=== PATIENT | male | born 1975 | race Caucasian/White ===

== ENCOUNTER 2018-12-12 00:35 | Emergency (ER) | payer OTHER ==
[~2018-12-12] VITALS: Ht 182.9 cm; Wt 88.5 kg
[~2018-12-12 00:35] MED LIST: COREG CR10 MG PO; KEFLEX500 M1 PO; LIPITOR10 MG PO; LISINOPRIL10 MG PO; ULTRAM 50MG TAB50 MG PO
[2018-12-12] MEDS ORDERED: ASPIRIN325 PO (00:44)
[2018-12-12 00:55] LABS: ABSOLUTE BASOPHILS 0.1 thou/uL (0.0-0.2); ABSOLUTE EOSINOPHILS 0.3 thou/uL (0.0-0.7); ABSOLUTE LYMPHOCYTES 2.9 thou/uL (0.8-5.3); ABSOLUTE MONOCYTES 0.9 thou/uL (0.0-1.2); ABSOLUTE NEUTROPHILS 8.2 thou/uL (1.6-8.1); BASOPHILS 1.2 %; EOSINOPHILS 2.3 %; HEMATOCRIT 50.2 % (42.0-52.0); HEMOGLOBIN 17.1 gm/dL (14.0-18.0); LYMPHOCYTES 23.1 %; MCH 32.1 pg (26.0-34.0); MCV 94.3 fL (80.0-100.0); MONOCYTES 7.3 %; MPV 7.6 fl. (7.2-11.1); NUCLEATED RBCS 0 /100WBC; PLATELET COUNT* 332 thou/uL (150-400); POLYS 66.1 %; RBC 5.32 mil/uL (4.50-6.00); RDW-CV 13.7 % (10.5-14.5); WBC 12.4 thou/uL (4.0-11.0)
[2018-12-12 01:03] LABS: ANION GAP 11 mmol/L (7-16); BUN 7 mg/dL (7-18); CALCIUM 8.6 mg/dL (8.5-10.1); CHLORIDE 105 mmol/L (98-107); CO2 24 mmol/L (21-32); CREATININE 1.1 mg/dL (0.6-1.3); GLUCOSE 94 mg/dL (70-99); POTASSIUM 3.6 mmol/L (3.5-5.1); SODIUM 140 mmol/L (136-145)
[2018-12-12 01:06] LABS: INR 0.9; PROTIME 9.4 Seconds (9.20-11.50)
[2018-12-12 01:14] LABS: ALBUMIN 3.7 g/dL (3.4-5.0); ALKALINE PHOSPHATASE 68 U/L (46-116); LIPASE 600 U/L (73-393); NT-PRO BRAIN NAT PEPTIDE 176 pg/mL (<300); SGOT 19 U/L (15-37); SGPT 37 U/L (30-65); TOTAL BILIRUBIN 0.3 mg/dL (<0.1-1.0); TOTAL PROTEIN 6.6 g/dL (6.4-8.2); TROPONIN-I LEVEL <0.06 ng/mL (<0.06)
[2018-12-12 02:47] VITALS: BP 120/84
[2018-12-12] MEDS ORDERED: NORCO 7.5-3251 EACH PO (02:47)
--- NOTE | 2018-12-14 11:53 | EKG ---
[place] [address] ELECTROCARDIOGRAM REPORT Name: AMBER MALONE [id number] Admission: 12/12/18 Attend Phys: Discharge: 12/12/18 Date of : 75 Report #: [id number] THIS REPORT FOR: //name// [facility] ED Test Date: 2018-12-12 Test Time: 00:40:14 Pat Name: AMBER MALONE Department: Room: Gender: M Parts Room Associate: CARMEN : 1975 Requested By: Nicolle Muir Order Number: [id number] MD: Wilver Pastor Measurements Intervals [place] Rate: 78 P: 69 [place]: 137 QRS: 61 QRSD: 118 T: 41 QT: 405 QTc: 462 Interpretive Statements Sinus rhythm Incomplete right bundle branch block Abnormal lateral Q waves Anterior infarct, old No previous ECG available for comparison Electronically Signed On 12-14-2018 11:53:16 CDT by Wilver Pastor [email or web address] <ELECTRONICALLY SIGNED> By: Wilver Pastor MD, [facility] 12/14/18 1153 0040 0040 Wilver Pastor MD, FACC /EPI
== END 2018-12-12 02:48 | disposition home or self-care (01) ==
LOC: M.ERS 00:35
PROVIDERS: Emergency Medicine
DX: R10.13 Epigastric pain (principal); F17.200 Nicotine dependence, unspecified, uncomplicated; Z88.0 Allergy status to penicillin

== ENCOUNTER 2019-01-22 22:04 | Emergency (ER) | payer OTHER ==
[~2019-01-22] VITALS: Ht 182.9 cm; Wt 86.2 kg
[~2019-01-22 22:04] MED LIST changes: +ASPIRIN325 PO; +NORCO 7.5-3251 EACH PO
[2019-01-22] MEDS ORDERED: CARVEDILOL25 MG PO (22:12)
[2019-01-22] MEDS ORDERED: PRINIVIL5 MG PO (22:13)
[2019-01-22] MEDS ORDERED: LIPITOR 20 MG T20 M1 PO (22:13)
[2019-01-22] MEDS ORDERED: NITROSTAT0.3 MG SUBLING (22:14)
[2019-01-22 22:40] LABS: ABSOLUTE BASOPHILS 0.1 thou/uL (0.0-0.2); ABSOLUTE EOSINOPHILS 0.2 thou/uL (0.0-0.7); ABSOLUTE LYMPHOCYTES 2.1 thou/uL (0.8-5.3); ABSOLUTE MONOCYTES 0.6 thou/uL (0.0-1.2); ABSOLUTE NEUTROPHILS 6.7 thou/uL (1.6-8.1); BASOPHILS 0.8 %; EOSINOPHILS 2.5 %; HEMATOCRIT 49.8 % (42.0-52.0); HEMOGLOBIN 17.3 gm/dL (14.0-18.0); LYMPHOCYTES 21.8 %; MCH 32.5 pg (26.0-34.0); MCHC 34.8 g/dL (28.0-37.0); MCV 93.3 fL (80.0-100.0); MONOCYTES 6.6 %; MPV 7.1 fl. (7.2-11.1); NUCLEATED RBCS 0 /100WBC; PLATELET COUNT* 335 thou/uL (150-400); POLYS 68.3 %; RBC 5.34 mil/uL (4.50-6.00); RDW-CV 13.5 % (10.5-14.5); WBC 9.8 thou/uL (4.0-11.0)
[2019-01-22 22:48] LABS: CALCIUM 9.3 mg/dL (8.5-10.1); CREATININE 1.2 mg/dL (0.6-1.3); POTASSIUM 3.7 mmol/L (3.5-5.1)
[2019-01-22 22:53] LABS: ALBUMIN 3.9 g/dL (3.4-5.0); TOTAL BILIRUBIN 0.2 mg/dL (<0.1-1.0); TOTAL PROTEIN 7.1 g/dL (6.4-8.2)
[2019-01-22] MEDS ORDERED: PHENERGAN 25 MG25 M1 PO (23:23)
[2019-01-22] MEDS ORDERED: NORCO 5-325 TA1 EAC1 PO (23:23)
[2019-01-22 23:54] VITALS: BP 125/80
--- NOTE | 2019-01-23 14:31 | EKG ---
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 Inspector: CARMEN : 1975 Requested By: Nicolle Muir Order Number: [id number] MD: Tom Anaya Measurements Intervals [place] Rate: 82 P: 78 [place]: 150 QRS: 5 QRSD: 88 T: 57 QT: 358 QTc: 418 Interpretive Statements Sinus rhythm Anterior infarct, old Baseline wander in lead(s) III Compared to ECG 12/12/2018 00:40:14 Incomplete right bundle-branch block no longer present Q waves no longer present Myocardial infarct finding still present Electronically Signed On 01-23-2019 14:30:49 CDT by Tom Anaya [email or web address] <ELECTRONICALLY SIGNED> By: Tom Anaya MD, FACC 01/23/19 1430 08 08 Tom Anaya MD, FACC /EPI
== END 2019-01-22 23:55 | disposition home or self-care (01) ==
LOC: M.ERS 22:04
PROVIDERS: Emergency Medicine
DX: K85.90 Acute pancreatitis without necrosis or infection, unspecified (principal); R19.7 Diarrhea, unspecified; F17.210 Nicotine dependence, cigarettes, uncomplicated; Z88.0 Allergy status to penicillin

== ENCOUNTER 2019-04-05 22:32 | Emergency (ER) | payer OTHER ==
[~2019-04-05] VITALS: Ht 182.9 cm; Wt 86.2 kg
[~2019-04-05 22:32] MED LIST changes: +CARVEDILOL25 MG PO; +LIPITOR 20 MG T20 M1 PO; +NITROSTAT0.3 MG SUBLING; +NORCO 5-325 TA1 EAC1 PO; +PHENERGAN 25 MG25 M1 PO; +PRINIVIL5 MG PO
[2019-04-05 23:19] LABS: ABSOLUTE BASOPHILS 0.1 thou/uL (0.0-0.2); ABSOLUTE EOSINOPHILS 0.3 thou/uL (0.0-0.7); ABSOLUTE LYMPHOCYTES 2.3 thou/uL (0.8-5.3); ABSOLUTE MONOCYTES 0.8 thou/uL (0.0-1.2); ABSOLUTE NEUTROPHILS 6.8 thou/uL (1.6-8.1); BASOPHILS 0.9 %; HEMATOCRIT 45.7 % (42.0-52.0); LYMPHOCYTES 22.2 %; MCH 32.2 pg (26.0-34.0); MONOCYTES 8.1 %; MPV 7.7 fl. (7.2-11.1); NUCLEATED RBCS 0 /100WBC; PLATELET COUNT* 294 thou/uL (150-400); POLYS 65.8 %; RBC 4.97 mil/uL (4.50-6.00); RDW-CV 13.6 % (10.5-14.5); WBC 10.3 thou/uL (4.0-11.0)
[2019-04-05 23:23] LABS: POTASSIUM 3.7 mmol/L (3.5-5.1)
[2019-04-05 23:35] LABS: ALBUMIN 3.5 g/dL (3.4-5.0); TOTAL BILIRUBIN 0.2 mg/dL (<0.1-1.0); TOTAL PROTEIN 6.3 g/dL (6.4-8.2)
[2019-04-06 00:01] VITALS: BP 111/78
--- NOTE | 2019-04-06 14:19 | EKG ---
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: [place] : 1975 Requested By: Shamar Luke Order Number: [id number] MD: Fran Solano Measurements Intervals [place] Rate: 72 P: 47 [place]: 132 QRS: 46 QRSD: 92 T: 77 QT: 383 QTc: 420 Interpretive Statements Sinus rhythm Anterolateral infarct, age indeterminate Compared to ECG 01/22/2019 22:09:24 No significant changes Electronically Signed On 04-06-2019 14:18:29 RECORD CENTER SPECIALIST by Fran Solano [email or web address] <ELECTRONICALLY SIGNED> By: Fran Solano MD, [facility] 04/06/19 1418 2306 2306 Fran Solano MD, FACC /EPI
== END 2019-04-06 00:03 | disposition home or self-care (01) ==
LOC: M.ERS 22:32
PROVIDERS: Family Medicine
DX: R10.13 Epigastric pain (principal); I25.2 Old myocardial infarction; F17.200 Nicotine dependence, unspecified, uncomplicated; Z95.2 Presence of prosthetic heart valve; Z88.0 Allergy status to penicillin

== ENCOUNTER 2019-04-13 22:00 | Emergency (ER) | payer OTHER ==
[~2019-04-13] VITALS: Ht 182.9 cm; Wt 89.4 kg
[2019-04-13 22:43] LABS: URINE BILIRUBIN NEGATIVE (Negative); URINE BLOOD NEGATIVE (Negative); URINE CLARITY CLEAR; URINE COLOR YELLOW; URINE GLUCOSE-RANDOM NEGATIVE (Negative); URINE KETONES NEGATIVE (Negative); URINE LEUKOCYTES-REFLEX NEGATIVE (Negative); URINE NITRITE-REFLEX NEGATIVE (Negative); URINE PROTEIN NEGATIVE (Negative); URINE SPECIFIC GRAVITY >= 1.030 (1.005-1.030); URINE UROBILINOGEN 0.2 E.U./dl (0.2-1.0)
[2019-04-13 22:43] LABS: ABSOLUTE BASOPHILS 0.1 thou/uL (0.0-0.2); ABSOLUTE EOSINOPHILS 0.3 thou/uL (0.0-0.7); ABSOLUTE LYMPHOCYTES 2.2 thou/uL (0.8-5.3); ABSOLUTE MONOCYTES 0.7 thou/uL (0.0-1.2); BASOPHILS 1.2 %; EOSINOPHILS 2.7 %; HEMATOCRIT 46.1 % (42.0-52.0); HEMOGLOBIN 16.1 gm/dL (14.0-18.0); LYMPHOCYTES 21.3 %; MCH 32.6 pg (26.0-34.0); MCHC 34.9 g/dL (28.0-37.0); MCV 93.1 fL (80.0-100.0); MONOCYTES 7.1 %; MPV 7.6 fl. (7.2-11.1); NUCLEATED RBCS 0 /100WBC; PLATELET COUNT* 327 thou/uL (150-400); POLYS 67.7 %; RBC 4.95 mil/uL (4.50-6.00); RDW-CV 13.6 % (10.5-14.5); WBC 10.4 thou/uL (4.0-11.0)
[2019-04-13 22:53] LABS: AMP/METHAMP Negative (Negative); BARBITURATES Negative (Negative); BENZODIAZEPINES Negative (Negative); COCAINE Negative (Negative); METHADONE Negative (Negative); OPIATES Negative (Negative); PCP Negative (Negative); THC POSITIVE (Negative)
[2019-04-13 22:54] LABS: ALBUMIN 3.6 g/dL (3.4-5.0)
[2019-04-13 23:01] LABS: POTASSIUM 3.8 mmol/L (3.5-5.1)
[2019-04-13 23:05] LABS: TOTAL BILIRUBIN 0.3 mg/dL (<0.1-1.0); TOTAL PROTEIN 6.6 g/dL (6.4-8.2)
[2019-04-14] MEDS ORDERED: HYDROCODON-ACE1 EAC8 PO (00:24)
[2019-04-14] MEDS ORDERED: PHENERGAN 25 MG25 M1 PO (00:24)
[2019-04-14 00:40] VITALS: BP 144/83
--- NOTE | 2019-04-14 10:19 | EKG ---
[place] [address] ELECTROCARDIOGRAM REPORT Name: AMBER MALONE [id number] Admission: 04/13/19 Attend Phys: Discharge: 04/14/19 Date of : 75 Report #: [id number] THIS REPORT FOR: //name// [facility] ED Test Date: 2019-04-13 Test Time: 22:29:55 Pat Name: AMBER MALONE Department: Room: Gender: M Party Chief: ALEXANDRU : 1975 Requested By: Nicolle Muir Order Number: [id number] Lizeth MD: Fran Solano Measurements Intervals [place] Rate: 72 P: 73 [place]: 145 QRS: 93 QRSD: 103 T: 59 QT: 382 QTc: 419 Interpretive Statements Sinus rhythm Extensive anterior infarct, old Compared to ECG 04/05/2019 23:06:40 No significant changes Electronically Signed On 04-14-2019 10:18:55 ELECTRIC METER TESTER by Fran Solano [email or web address] <ELECTRONICALLY SIGNED> By: Fran Solano MD, [facility] 04/14/19 1018 2229 2229 Fran Solano MD, FACC /EPI
== END 2019-04-14 00:40 | disposition home or self-care (01) ==
LOC: M.ERS 22:00
PROVIDERS: Emergency Medicine
DX: K52.9 Noninfective gastroenteritis and colitis, unspecified (principal); I25.2 Old myocardial infarction; F17.210 Nicotine dependence, cigarettes, uncomplicated; Z95.2 Presence of prosthetic heart valve; Z88.0 Allergy status to penicillin

== ENCOUNTER 2020-05-17 21:59 | Emergency (ER) | payer OTHER ==
[~2020-05-17] VITALS: Ht 182.9 cm; Wt 86.2 kg
[~2020-05-17 21:59] MED LIST changes: +HYDROCODON-ACE1 EAC8 PO
[2020-05-17 22:41] LABS: ABSOLUTE BASOPHILS 0.1 thou/uL (0.0-0.2); ABSOLUTE EOSINOPHILS 0.2 thou/uL (0.0-0.7); ABSOLUTE LYMPHOCYTES 1.8 thou/uL (0.8-5.3); ABSOLUTE MONOCYTES 0.8 thou/uL (0.0-1.2); ABSOLUTE NEUTROPHILS 7.9 thou/uL (1.6-8.1); EOSINOPHILS 1.9 %; HEMATOCRIT 46.9 % (42.0-52.0); HEMOGLOBIN 15.8 gm/dL (14.0-18.0); LYMPHOCYTES 16.9 %; MCH 31.7 pg (26.0-34.0); MCHC 33.7 g/dL (28.0-37.0); MPV 6.9 fl. (7.2-11.1); NUCLEATED RBCS 0 /100WBC; PLATELET COUNT* 353 thou/uL (150-400); POLYS 73.2 %; RBC 4.99 mil/uL (4.50-6.00); RDW-CV 13.8 % (10.5-14.5); WBC 10.8 thou/uL (4.0-11.0)
[2020-05-17 22:50] LABS: CALCIUM 8.5 mg/dL (8.5-10.1); CREATININE 0.9 mg/dL (0.6-1.3); POTASSIUM 3.9 mmol/L (3.5-5.1)
[2020-05-17 22:52] LABS: APTT 27.1 Seconds (25.0-31.3); PROTIME 10.6 Seconds (9.20-11.50)
[2020-05-17 23:00] LABS: ALBUMIN 3.2 g/dL (3.4-5.0); TOTAL BILIRUBIN 0.3 mg/dL (<0.1-1.0); TOTAL PROTEIN 5.7 g/dL (6.4-8.2)
[2020-05-18 01:49] VITALS: BP 125/77
--- NOTE | 2020-05-18 11:32 | EKG ---
[place] [address] ELECTROCARDIOGRAM REPORT Name: AMBER MALONE Room: [facility]#: [id number] Admission: 05/17/20 Attend Phys: Discharge: 05/18/20 Date of : 75 Date of Service: 05/17/202201 Report #: [id number] THIS REPORT FOR: //name// [facility] ED Test Date: 2020-05-17 Test Time: 22:02:35 Pat Name: AMBER MALONE Department: Room: Gender: Net Lead Architect: YARELIS : 1975 Requested By: Fallon Penaloza Order Number: [id number] MD: Wilver Pastor Measurements Intervals [place] Rate: 71 P: 70 [place]: 132 QRS: -6 QRSD: 96 T: 58 QT: 378 QTc: 411 Interpretive Statements Sinus rhythm Anterior infarct, old Compared to ECG 04/13/2019 22:29:55 No significant changes Electronically Signed On 05-18-2020 11:32:32 AIR DEFENSE SPECIALIST by Wilver Pastor [email or web address] <ELECTRONICALLY SIGNED> By: Wilver Pastor MD, [facility] 05/18/20 1132 01 01 Wilver Pastor MD, [facility] /EPI
== END 2020-05-18 01:51 | disposition home or self-care (01) ==
LOC: M.ERS 21:59
PROVIDERS: Personal Emergency Response Attendant
DX: I25.10 Atherosclerotic heart disease of native coronary artery without angina pectoris (principal); Z88.0 Allergy status to penicillin; Z88.8 Allergy status to other drugs, medicaments and biological substances; Z95.5 Presence of coronary angioplasty implant and graft

== ENCOUNTER 2021-01-07 20:46 | Emergency (ER) | payer OTHER ==
[~2021-01-07] VITALS: Ht 182.9 cm; Wt 83.0 kg
[2021-01-07 21:36] LABS: ABSOLUTE BASOPHILS 0.1 thou/uL (0.0-0.2); ABSOLUTE EOSINOPHILS 0.1 thou/uL (0.0-0.7); ABSOLUTE MONOCYTES 1.1 thou/uL (0.0-1.2); ABSOLUTE NEUTROPHILS 8.1 thou/uL (1.6-8.1); BASOPHILS 0.9 %; EOSINOPHILS 1.3 %; HEMOGLOBIN 14.5 gm/dL (14.0-18.0); LYMPHOCYTES 17.4 %; MCH 32.6 pg (26.0-34.0); MCHC 34.5 g/dL (28.0-37.0); MCV 94.3 fL (80.0-100.0); MONOCYTES 9.3 %; NUCLEATED RBCS 0 /100WBC; PLATELET COUNT* 353 thou/uL (150-400); POLYS 71.1 %; RBC 4.45 mil/uL (4.50-6.00); RDW-CV 13.4 % (10.5-14.5); WBC 11.4 thou/uL (4.0-11.0)
[2021-01-07 21:39] LABS: CREATININE 1.3 mg/dL (0.6-1.3); POTASSIUM 3.7 mmol/L (3.5-5.1)
[2021-01-07 21:41] LABS: APTT 28.3 Seconds (25.0-31.3); PROTIME 11.1 Seconds (9.20-11.50)
[2021-01-07 21:43] LABS: ALBUMIN 4.7 g/dL (3.4-5.0); TOTAL BILIRUBIN 0.4 mg/dL (<0.1-1.0); TOTAL PROTEIN 7.7 g/dL (6.4-8.2)
[2021-01-08] MEDS ORDERED: AZITHROMYCIN 2250 MG PO (00:57)
[2021-01-08] MEDS ORDERED: ZOFRAN ODT4 MG PO (00:57)
[2021-01-08] MEDS ORDERED: HYDROCODON-ACE1 EAC7 PO (00:57)
[2021-01-08 01:18] VITALS: BP 111/71
--- NOTE | 2021-01-08 10:32 | EKG ---
[place] [address] ELECTROCARDIOGRAM REPORT Name: AMBER MALONE Room: [facility]#: [id number] Admission: 01/07/21 Attend Phys: Discharge: 01/08/21 Date of : 75 Date of Service: 01/07/212044 Report #: [id number] THIS REPORT FOR: //name// [facility] ED Test Date: 2021-01-07 Test Time: 20:45:35 Pat Name: AMBER MALONE Department: Room: Gender: Director Of Occupational Health: : 1975 Requested By: Fallon Penaloza Order Number: [id number] MD: Wilver Pastor Measurements Intervals [place] Rate: 73 P: 81 [place]: 148 QRS: 0 QRSD: 90 T: 84 QT: 367 QTc: 405 Interpretive Statements Sinus rhythm Anterior infarct, old Compared to ECG 05/17/2020 22:02:35 No significant changes Electronically Signed On 01-08-2021 10:31:53 CDT by Wilver Pastor [email or web address] <ELECTRONICALLY SIGNED> By: Wilver Pastor MD, FACC 01/08/21 1031 44 Wilver Pastor MD, [facility] /EPI
== END 2021-01-08 01:19 | disposition home or self-care (01) ==
LOC: M.ERS 20:46
PROVIDERS: Personal Emergency Response Attendant
DX: K85.90 Acute pancreatitis without necrosis or infection, unspecified (principal); Z20.822 Contact with and (suspected) exposure to COVID-19; J18.9 Pneumonia, unspecified organism; F17.210 Nicotine dependence, cigarettes, uncomplicated; Z88.0 Allergy status to penicillin; Z88.8 Allergy status to other drugs, medicaments and biological substances

== ENCOUNTER 2021-01-29 22:33 | Emergency (ER) | payer OTHER ==
[~2021-01-29] VITALS: Ht 182.9 cm; Wt 86.2 kg
[~2021-01-29 22:33] MED LIST changes: +AZITHROMYCIN 2250 MG PO; +HYDROCODON-ACE1 EAC7 PO; +ZOFRAN ODT4 MG PO
[2021-01-30 00:52] LABS: ABSOLUTE BASOPHILS 0.1 thou/uL (0.0-0.2); ABSOLUTE EOSINOPHILS 0.3 thou/uL (0.0-0.7); ABSOLUTE LYMPHOCYTES 2.8 thou/uL (0.8-5.3); ABSOLUTE NEUTROPHILS 7.5 thou/uL (1.6-8.1); EOSINOPHILS 2.7 %; HEMATOCRIT 41.3 % (42.0-52.0); HEMOGLOBIN 14.4 gm/dL (14.0-18.0); LYMPHOCYTES 23.5 %; MCH 32.5 pg (26.0-34.0); MCHC 34.8 g/dL (28.0-37.0); MCV 93.4 fL (80.0-100.0); MONOCYTES 8.8 %; MPV 6.9 fl. (7.2-11.1); NUCLEATED RBCS 0 /100WBC; PLATELET COUNT* 359 thou/uL (150-400); RBC 4.42 mil/uL (4.50-6.00); RDW-CV 13.3 % (10.5-14.5); WBC 11.8 thou/uL (4.0-11.0)
[2021-01-30 00:58] LABS: CALCIUM 8.5 mg/dL (8.5-10.1); CREATININE 0.9 mg/dL (0.6-1.3)
[2021-01-30 01:03] LABS: ALBUMIN 3.9 g/dL (3.4-5.0); TOTAL BILIRUBIN 0.2 mg/dL (<0.1-1.0); TOTAL PROTEIN 6.9 g/dL (6.4-8.2)
[2021-01-30] MEDS ORDERED: CARAFATE 1 GM TA1 GM PO (03:37)
[2021-01-30 04:20] VITALS: BP 115/60
== END 2021-01-30 04:21 | disposition home or self-care (01) ==
LOC: M.ERS 22:33
PROVIDERS: Emergency Medicine
DX: K29.70 Gastritis, unspecified, without bleeding (principal); F17.210 Nicotine dependence, cigarettes, uncomplicated; Z79.82 Long term (current) use of aspirin; Z79.899 Other long term (current) drug therapy; Z88.0 Allergy status to penicillin; Z88.8 Allergy status to other drugs, medicaments and biological substances

== ENCOUNTER 2021-04-04 10:57 | Emergency (ER) | payer OTHER ==
[~2021-04-04] VITALS: Ht 182.9 cm; Wt 83.9 kg
[~2021-04-04 10:57] MED LIST changes: +CARAFATE 1 GM TA1 GM PO
[2021-04-04 12:00] LABS: INFLUENZA A ANTIGEN Negative (Negative); INFLUENZA B ANTIGEN Negative (Negative)
[2021-04-04 12:07] VITALS: BP 114/69
== END 2021-04-04 12:08 | disposition home or self-care (01) ==
LOC: M.ERS 10:57
PROVIDERS: Emergency Medicine
DX: U07.1 COVID-19 (principal); F17.210 Nicotine dependence, cigarettes, uncomplicated; Z79.899 Other long term (current) drug therapy; Z88.0 Allergy status to penicillin; Z91.02 Food additives allergy status